=== PATIENT | female | born 1960 | race Caucasian/White ===

== ENCOUNTER 2019-05-05 08:51 | Emergency (ER) | payer BC, SELFPAY ==
[2019-05-05 08:52] VITALS: BP 138/81; PULSE 78; RESP 16; TEMP 36.7; O2SAT 99; BMI 16.2
--- NOTE | 2019-05-05 09:06 | ED.VISSUMM ---
- ER Visit Summary Date of Service: 05/05/19 Chief Complaint: Back pain History of Present Illness: The patient is a 58 F who presents with back pain. She has had chronic back pain for many years. The past couple of months it has been getting worse. She denies any injury. On the left side of her mid and lower back. Movement makes it worse. Nothing makes it better. Denies any numbness or tingling in her legs. No bowel or bladder incontinence. No dysuria. She tried aspirin at home without any relief. She is never had any previous surgeries on her back. She does have a history of scoliosis. Physical Examination: Vital signs are reviewed. Heart is regular rate and rhythm. Lungs are clear to auscultation. Abdomen soft and nontender. Back reveals tenderness in the left paraspinal area of the thoracic and lumbar region. Extremities have no edema. Her strength, sensation and reflexes are equal and normal throughout. Test Results: None performed Emergency Department Course and Treatment: The patient states that she had x-rays done at an urgent care 3 days ago. I reviewed the interpretation of these x-rays and they were unremarkable except for her known scoliosis. I do not feel any new imaging is needed. This is a chronic issue. I will give her Toradol and Norflex here. She will go home with naproxen and Flexeril. She will need to establish with a PCP who may need to send her on for further spine consultation. Treatment Plan: [] Disposition: Discharge Impression: Acute on chronic back pain This note was generated with [employer] dictation software. It may contain incorrect words, spelling, and punctuation that were not noted in review of the chart prior to signing ED Disposition - Plan for ED Patient: Referrals: iMguel Cummins MD [Primary Care Provider] -
--- NOTE | 2019-05-05 09:09 | ED.DEP ---
ED Disposition - Plan for ED Patient: Disposition: Home or Assisted Living Instructions: BACK PAIN (Acute or Chronic) Prescriptions: cycloBENZAPRine HCl [Flexeril] 10 mg PO TID PRN #20 tab PRN Reason: Muscle Spasm Prescription Printed Naproxen [Naprosyn] 500 mg PO BID PRN #20 tab Prescription Printed Referrals: Miguel Cummins MD [Primary Care Provider] -
[2019-05-05] MEDS: Ketorolac 30 MG/ML Syringe IM (09:14)
[2019-05-05] MEDS: Orphenadrine 60 MG/2 ML Ampul IM (09:14)
== END 2019-05-05 09:31 | disposition home or self-care (01) ==
LOC: ED 09:17
PROVIDERS: Emergency Provider Emergency Medicine; Family Provider Family Medicine; PCP Family Medicine
DX: M54.9 Dorsalgia, unspecified (principal); G89.29 Other chronic pain; M41.9 Scoliosis, unspecified; Z72.0 Tobacco use
CPT/HCPCS: 96372; 99282

== ENCOUNTER 2019-12-03 06:49 | Outpatient (RCR) | payer BC, SELFPAY ==
--- NOTE | 2019-12-09 07:19 | HP.OTFCE_ITS ---
Floor (Occasional 1-33% of Day): 20# Floor (Frequent 34-66% of Day): 10# Floor (Constant 67-100% of Day): NA Floor PDL: Light Knee (Occasional 1-33% of Day): 20# Knee (Frequent 34-66% of Day): 10# Knee (Constant 67-100% of Day): NA Knee PDL: Light Waist (Occasional 1-33% of Day): 15# Waist (Frequent 34-66% of Day): 8# Waist (Constant 67-100% of Day): NA Waist PDL: Sedentary Shoulder (Occasional 1-33% of Day): 15# Shoulder (Frequent 34-66% of Day): 8# Shoulder (Constant 67-100% of Day): NA Shoulder PDL: Sedentary Overhead (Occasional 1-33% of Day): 5# Overhead (Frequent 34-66% of Day): NA Overhead (Constant 67-100% of Day): NA Overhead PDL: No Ability Bending: Occasional Ability (1-33% of day) Comments: low occasional ability Squatting: Occasional Ability (1-33% of day) Comments: low occasional ability Kneeling: Occasional Ability (1-33% of day) Comments: low occasional ability Reaching out: Occasional Ability (1-33% of day) Comments: performed while sitting Reaching up: Occasional Ability (1-33% of day) Comments: performed while sitting Sitting: Frequent Ability (34-66% of day) Walking: Occasional Ability (1-33% of day) Standing: Occasional Ability (1-33% of day) Duration Sedentary Sedentary Light Light Light Medium Medium Medium Heavy Very Heavy Heavy Occasional (0-33% of day) Frequent (34-66% of day) Constant (67-100% of day) 10 # Negligible Negligible 15 # 8 # Negligible 20 # 10# Negli. 35 # 18 # 7 # 50 # 25 # 10 # 75 # 100 # >100 # 38 # 50 # >50 # 15 # 20 # >20 # Height: 1.57 m Weight:: 40.823 kg Hand Dominance: Right Medical History Including Restrictions: Pt states she was dx with scoliosis when she was in 7th grade. pt states other than this dx she is in good health. pt reports she has not been put on a lifting restriction. Pt states she has not been working for 6 weeks due to back and left side pain. pt has been see by a chiropractor for a few months to try to get relief. Dr. Goodwin took her off work for 6 weeks and she returned yesterday. Pt states the 6 weeks off did not make a difference in her pain. Pt has been to see orthopedic Dr. Luke and was referred for FCE. Diagnoses: Dx of idiopathic scoliosis, thoracolumbar region 76* curve Symptoms: left Side feels like it is being crushed. Painful left side Pain: Pt states she is currently 8/10. pt does not take pain medication. pt has back brace she wears mostly at work. states this is lumbar support not custom back brace. reasting heart rate 66 Work History: Pt states she has been employed at [employer] for 14.5 years. Pt work hours varies at 39 hours a week. 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 Pt states she has a lift re'q of 50# but states her male co-workers will assist her with lifting. Other job req include standing, walking. Behavioral: Pt was cooperative throughout assessment. ADLS: Pt lives alone in a 2nd story apt. with 14 entry steps with one rail. Pt states she has a claw foot bathtub, pt states she steps in and has no grab bars. pt states she is ind. with bathing and dressing. Pt states she sleeps on a couch because she cannot get comfortable in her bed. pt is ind. with cleaning and cooking. pt ind. with driving. pt ind. with shopping. pt has cats and a puppy that she cares for with no difficulty. Physical Examination: pt posture demo thoracic/lumbar curve. pt demo with scoliosis curve to the left of thoracic/lumbar spine ROM: pt demo with scoliosis curve. UB rom wnl. LB rom WNL. pt limited with truck flex/ext Strength: pt demo UB MMT 4-/5. LB MMT 4+/5 Right Corporate Development Manager Strength Average: 51.66 Right Corporate Development Manager Strength Percentile: 12% Left Corporate Development Manager Strength Average: 50.00 Left Corporate Development Manager Strength Percentile: 22% Right Lateral Pinch Average: 12.66 Right Lateral Pinch Percentile: 50% Left Lateral Pinch Average: 10.33 Left Lateral Pinch Percentile: 25% Right Tripod Pinch Average: 18.66 Right Tripod Pinch Percentile: 90% Left Tripod Pinch Average: 12.66 Left Tripod Pinch Percentile: 75% Sensation: pt denies Fine Motor: 9-hole peg test. right 18.83 sec. = 75%. left 22.37 sec. =50% Balance: no noted loss of balance Bending: pt demo the ability to bend forward three times and 5 times pts pain increased from 6/10 to 7 /10. pt was unable to bend forward 10 times or 10 times rapidly. pt can bend forward on a low occasional ability. Squatting: pt demo the ability to squat three times and 8 times with external support. pt reported pain pt can squat on a low occasional ability. 7/10 heart rate 74 Kneeling: pt demo the ability to kneel three and ten times with external support pt reported pain increased 8/10 pts heart rate increased to 78 beates per min. /pt was leaning heavely on table top with task. pt unable to kneel ten times fast. pt can kneel on a low occasional ability Reaching out/up: pt demo the ability to reach up/out three times, ten times and ten times rapidly. pt completed this sitting as her back pain contnued to staty at 7/10. pt can reach up/out on occasional basis. Walking: pt ambulated 8 min with a antalgic gait pattern. heart rate increased to 87 beats per min. pain 8/10 Standing: pt demo the ability to stand for 3min and 39 seconds. pt states her pain level 7/10 with standing. pts heart rate increased to 94beats per min. pt can stand on occasional ability Sitting: pt demo the ability to sit for 40 min witih no apparent or expressed discomofort pt can sit on a frequent basis Climbing Stairs: pt demo the ability to ascend and desend ten steps with a reciprical step pattern with use of rail. pt demo good safe ability to mtg staris. Floor Lift: pt demo max lift abilty at 20# and comfort lift at 10# from floor level. Pt demo good lift mechanics Knee Lift: pt demo max lift abilty at 20# and comfort lift at 10# from knee level. Pt demo good lift mechanics Waist Lift: pt demo max lift abilty at 15# and comfort lift at 8# from waist level. Pt has increased pain with this height of lift in thracic region Shoulder Lift: pt demo max lift abilty at 15# and comfort lift at 8# from shoulder level. pt has increased pain with this height of lift in throacic reagion Overhead Lift: pt demo max lift ability at 5# Carrying: pt demo the ability to carry 10# for 30 feet with good ability. Comments: Heart rate 94 beats per min. following lifting tasks.
--- NOTE | 2020-02-25 14:18 | HP.OT.NRP ---
DARRELL Nati LOPEZ was seen in my office for initial evaluation on . The following Plan of Care was established for this patient: This patient was last seen in our office 12/03/19. Pertinent comments regarding their Occupational therapy will appear below: Pt seen for FCE only. At this point I will be discontinuing this patient from occupational therapy. I would be happy to see this patient again in the future if found appropriate by the physician. Thank you! Samantha Alvarez, OTR/L, CHT
== END 2019-12-03 19:00 | disposition home or self-care (01) ==
LOC: OT 06:49
PROVIDERS: PCP Family Medicine
DX: M41.25 Other idiopathic scoliosis, thoracolumbar region (principal)
CPT/HCPCS: 97750

== ENCOUNTER → 2022-12-18 | Outpatient (CLI) | payer BC, SELFPAY ==
--- NOTE | 2022-12-18 11:10 | RAD_ITS ---
STUDY: X-RAY EXAMINATION: SCOLIOSIS SERIES REASON FOR EXAM: Female, 62 years old. SCOLIOSIS TECHNIQUE: 1 view(s) of the thoracolumbar spine were obtained in the upright standing position. COMPARISON: Comparison is made with prior study dated March 18, 2012. FINDINGS: 48 degree dextroconvex scoliosis at the thoracal lumbar junction. This has progressed as compared to prior study. RAD/Scoliosis 1 view IMPRESSION: 48 degree dextroconvex scoliosis at the thoracolumbar junction. This has progressed as compared to prior study. Electronically Signed: Nahid Higuera MD at 11:15 EDT ,
== END | disposition home or self-care (01) ==
PROVIDERS: PCP Family Medicine; Referring Provider Family Medicine; Visit Provider Family Medicine
DX: M41.9 Scoliosis, unspecified (principal)
CPT/HCPCS: 72081

== ENCOUNTER → 2023-03-07 | Outpatient (CLI) | payer BC, SELFPAY ==
--- NOTE | 2023-03-07 07:35 | MRI_ITS ---
STUDY: MRI LUMBAR SPINE WITHOUT CONTRAST REASON FOR EXAM: Female, 62 years old. pain TECHNIQUE: Standardized fat and water weighted pulse sequences were obtained in the sagittal and axial planes. COMPARISON: X-ray the lumbar spine dated February 08, 2023 FINDINGS: Normal lumbar lordosis. Severe dextroscoliosis. Normal conus medullaris that terminates at the L1 level. No acute fracture or compression deformity or marrow edema is present. T12-L1: Normal endplates. Mild asymmetric disc space narrowing without significant bulge or herniation of the disc. Normal bilateral facet joints. Normal central canal and bilateral lateral recesses. Normal bilateral intervertebral neural foramina. L1-2: Mild to moderate Modic endplate degenerative signal. Mild to moderate asymmetric disc space narrowing with mild annular bulging. Mild left foraminal stenosis. Mild facet joint hypertrophy. Normal right neural foramen. Normal central canal and bilateral lateral recesses. L2-3: Mild to moderate asymmetric disc space narrowing with mild annular bulging. Mild endplate spurring. Mild facet joint hypertrophy. Normal central canal and bilateral lateral recesses. Normal bilateral intervertebral neural foramina. L3-4: Diffuse disc desiccation with mild to moderate asymmetric disc space narrowing most pronounced on the right side with minor annular bulging. Mild facet joint and ligament of flavum hypertrophy. Mild right foraminal stenosis. Normal left neural foramen. Normal bilateral facet joints. Normal central canal and bilateral lateral recesses. L4-5: Mild asymmetric disc space narrowing with right side disc space narrowing and minor annular bulging and endplate degenerative signal. Mild facet joint hypertrophy mild right foraminal stenosis. Normal left neural foramen.. Normal central canal and bilateral lateral recesses. L5-S1: Normal endplates. Normal disc height, hydration and morphology. Mild right facet joint hypertrophy Normal central canal and bilateral lateral recesses. Normal bilateral intervertebral neural foramina. Normal visualized sacral ala. Normal visualized paraspinous soft tissue structures. MRI/Spine Lumbar (Routine) IMPRESSION: Multilevel degenerative changes, as described above. Electronically Signed: Román Carbone MD at 15:03 EDT ,
== END | disposition home or self-care (01) ==
PROVIDERS: PCP Family Medicine; Referring Provider Orthopaedic Surgery; Visit Provider Orthopaedic Surgery
DX: M41.9 Scoliosis, unspecified (principal)
CPT/HCPCS: 72148

== ENCOUNTER → 2023-03-22 | Outpatient (CLI) | payer BC, SELFPAY ==
--- NOTE | 2023-03-22 10:51 | BD_ITS ---
STUDY: DUAL ENERGY X-RAY ABSORPTIOMETRY / DXA REASON FOR EXAM: Female, 62 years old. Osteoporosis TECHNIQUE: Bone Mineral Density (BMD) measurements of left forearm and bilateral hips were obtained. COMPARISON: None. FINDINGS: Left Femur Total: g/cm2 (0.562) / T-score (-3.1) / Z-score (-2.1) Left Femoral Neck: g/cm2 (0.473) / T-score (-3.4) / Z-score (-2.1) Right Femur Total: g/cm2 (0.486) / T-score (-3.7) / Z-score (-2.7) Right Femoral Neck: g/cm2 (0.453) / T-score (-3.6) / Z-score (-2.2) Right Forearm: g/cm2 (0.465) / T-score (-2.1) / Z-score (-0.8) BD/Dexa Bone Density Study IMPRESSION: The patient is considered osteoporotic as outlined below according to World Aro[employer] Organization (WHO) criteria with a high fracture risk. Reference Information: The T-score is the number of standard deviations above or below the standard which is normal for young adults at their peak bone mineral density. The World Health Organization (WHO) interprets the T-scores as follows: Above -1 Normal bone density Between -1 and -2.5 Osteopenia Equal to / or below -2.5 Osteoporosis As a practical clinical guideline, osteopenia may be graded as follows: Mild -1 through -1.5 Moderate -1.6 through -2.0 Severe -2.1 through -2.4 The Z-score is the number of standard deviations above or below age-matched controls. A Z-score of less than -1.5 would be considered abnormal. References: 1. NIH Osteoporosis and Related Bone Diseases www osteo.org 2. International Society for Clinical Densitometry www iscd.org 3. National Osteoporosis Foundation www nof.org Electronically Signed: Nahid Higuera MD at 11:29 EDT ,
== END | disposition home or self-care (01) ==
PROVIDERS: PCP Family Medicine; Referring Provider Orthopaedic Surgery; Visit Provider Orthopaedic Surgery
DX: M81.0 Age-related osteoporosis without current pathological fracture (principal)
CPT/HCPCS: 77080

== ENCOUNTER → 2023-09-20 | Outpatient (CLI) | payer BC, MEDICAID, SELFPAY ==
[2023-09-20 10:33] LABS: ALB/GLOB Ratio 1.1 RATIO (0.9-2.4); AST(SGOT) 169 U/L (15-37); Alanine Aminotransfer ALT/SGPT 109 U/L (13-56); Albumin, Serum 3.7 g/dL (3.2-5.0); Alkaline Phosphatase 84 U/L (45-117); Anion Gap 10 (5-15); BUN 7 mg/dL (7-18); BUN/Creat Ratio 11.8 RATIO (10-20); Calcium,Total 9.4 mg/dL (8.5-10.1); Chloride 103 mmol/L (98-107); Cholesterol 220 mg/dL (200); Creatinine, Serum 0.59 mg/dL (0.55-1.02); EST Glomerular Filtration Rate 110 mL/min (>60); Est Glom Filt Rate - Afr Amer 133 mL/min (>60); Globulin 3.3 g/dL (2.2-4.2); Glucose 72 mg/dL (74-106); High Density Lipoprotein 142 mg/dL; Potassium 4.5 mmol/L (3.5-5.1); Sodium Level 137 mmol/L (136-145); Triglycerides 72 mg/dL; Very Low Density Lipoprotein 14 mg/dL (5-40)
== END | disposition home or self-care (01) ==
LOC: MFPLAB 08:42
PROVIDERS: PCP Family Medicine; Visit Provider Family Medicine
DX: Z00.00 Encounter for general adult medical examination without abnormal findings (principal)
CPT/HCPCS: 36415; 80053; 80061

== ENCOUNTER → 2024-03-26 | Outpatient (CLI) | payer MEDICAID, SELFPAY ==
[2024-03-26 15:57] LABS: Anion Gap 10 (5-15); BUN 6 mg/dL (7-18); Calcium,Total 9.6 mg/dL (8.5-10.1); Chloride 101 mmol/L (98-107); Creatinine, Serum 0.67 mg/dL (0.55-1.02); EST Glomerular Filtration Rate 95 mL/min (>60); Est Glom Filt Rate - Afr Amer 115 mL/min (>60); Glucose 106 mg/dL (74-106); Potassium 4.1 mmol/L (3.5-5.1); Sodium Level 135 mmol/L (136-145)
== END | disposition home or self-care (01) ==
PROVIDERS: PCP Family Medicine; Referring Provider Family Medicine; Visit Provider Family Medicine
DX: R00.0 Tachycardia, unspecified (principal)
CPT/HCPCS: 36415; 80048; 84443

== ENCOUNTER → 2024-06-11 | Outpatient (CLI) | payer MEDICAID, SELFPAY ==
--- NOTE | 2024-06-11 13:23 | ST.MBS ---
Modified Barium Swallow Patient Information Study Date: 06/11/24 Study Time: 13:00 Direct Billable Minutes: 60 Total Minutes procedure & reportin Diagnosis: Dysphagia, unspecified R13.10 Referring Physician: Miguel Cummins Reason for Referral: Objectively assess swallow function, assess risk for aspiration, and determine recommendations for least restrictive diet textures and compensatory strategies to improve safety of swallow. Current Diet Ordered: Regular textures/ Thin liquids (no modifications) Respiratory Status: Oxygenating on Room Air Penetration-Aspiration Scale Penetration-Aspiration Scale: OBJECTIVE ASSESSMENT OF SWALLOW FUNCTION (QUANTITATIVE ? PER TRIAL): PENETRATION / ASPIRATION SCALE (OHARA): 1 = does not enter airway 2 = enters airway/above vocal folds/ejected 3 = enters airway/above vocal folds/not ejected 4 = enters airway/contacts vocal folds/ejected 5 = enters airway/contacts vocal folds/not ejected 6 = enters airway/below vocal folds/ejected 7 = enters airway/below vocal folds/not ejected despite effort 8 = enters airway/below vocal folds/no effort VIDEOFLOROSCOPIC SCALE SCORE (OHARA): Grade I = aspiration of material that has penetrated into the laryngeal vestibule, intact cough reflex Grade II = aspiration < 10 % of the bolus, intact cough reflex Grade III = aspiration of < 10 % of the bolus, reduced cough reflex or aspiration of > 10 % of the bolus, intact cough reflex Grade IV = aspiration of > 10 % of the bolus, reduced cough reflex Penetration-Aspiration Scale Score Thin Liquid via teaspoon: Result: 1= does not enter airway Thin Liquid via teaspoon Trial 2: Result: 1= does not enter airway Thin Liquid via small single sip: cup: Result: 1= does not enter airway Thin Liquid via sequential sips: cup: Result: 1= does not enter airway Nucla Thick Liquid via small single sip: cup: Result: 1= does not enter airway Honey Thick Liquid via small single sip: cup: Result: 1= does not enter airway Pudding via teaspoon: Result: 1= does not enter airway Cookie: Result: 1= does not enter airway Oral Phase Labial Seal: No Labial Escape Tongue Control During Bolus Hold: Cohesive bolus between tongue to palatal seal Bolus Preparation/Mastication: Slow prolonged chewing/mashing with complete recollection Bolus Transport/Lingual Motion: Brisk tongue motion Oral Residue: Trace residue lining oral structures Pharyngeal Phase Initiation of Pharyngeal Swallow: Bolus head at posterior angle of ramus at first hyoid excursion Soft Palate Elevation: No bolus between soft palate and pharyngeal wall Laryngeal Elevation: Comp. Superior move thyroid cart w/comp. apprx arytenoid cart-epig pet Anterior Hyoid Excursion: Complete anterior movement Epiglottic Movement: Complete inversion Laryngeal Vestibule Closure at Height of Swallow: Complete; no air/contrast in laryngeal vestibule Pharyngeal Stripping Wave: Present - diminished Pharyngoesophageal Segment Opening: Parital distension and partial duration; parital obstruction of flow Tongue Base Retraction: No contrast between tongue base and posterior pharyngeal wall Pharyngeal Residue: Trace residue within or on pharyngeal structures Esophageal Phase Esophageal Clearance: Complete clearance Diagnosis/Impression Diagnosis: Swallow Function WNL Impression: Overall, the patient presents with adequate swallow function. The oral phase is within normal limits with efficient bolus formation and transport. The pharyngeal phase was also intact, with clear and timely clearance of the bolus. No aspiration or penetration was observed. These findings suggest that the patient's swallow function is overall normal, with no current indication of dysphagia. Recommendations Diet: Regular Textures and Thin Liquids Recommend Repeat Modified Barium Swallow: No Need for Skilled Speech Therapy Services: No Education Completed: 1. Described result of evaluation. Status Active ST Patient: Active Contact Information [facility] Speech Therapy:: Kay Weiss M.A. [facility]-RENT CONTROL OFFICE MANAGER Speech-Language Pathologist [facility] [address] [place] [address] [email or web address] [phone]
== END | disposition home or self-care (01) ==
LOC: RAD 12:45
PROVIDERS: PCP Family Medicine; Referring Provider Family Medicine; Visit Provider Family Medicine
DX: R13.10 Dysphagia, unspecified (principal)
CPT/HCPCS: 74230; 92611

== ENCOUNTER → 2024-12-24 | Outpatient (CLI) | payer BC, SELFPAY ==
[2024-12-24 17:42] LABS: Hematocrit 26.7 % (37-47); Hemoglobin 8.4 g/dL (12.0-15.0); Mean Corp Hgb Conc 31.5 g/dL (32-36); Mean Corpuscular Volume 103.9 fL (81-99); Mean Platelet Vol. 9.2 fl (6.2-12.0); Platelet Count 306 K/mm3 (150-450); RBC Distribution Width CV 14.4 % (11.6-14.6); RBC Distribution Width SD 54.1 fl (35.1-43.9); Red Blood Count 2.57 M/mm3 (4.2-5.4); White Blood Count 4.5 K/mm3 (4.4-11.0)
[2024-12-24 18:56] LABS: AST(SGOT) 142 U/L (<=31); Alanine Aminotransfer ALT/SGPT 57 U/L (<=34); Albumin, Serum 4.5 g/dL (3.4-4.8); Alkaline Phosphatase 138 U/L (35-104); Anion Gap 17 (5-15); BUN 6 mg/dL (4-19); BUN/Creat Ratio 9.0 RATIO (10-20); Calcium,Total 10.3 mg/dL (7.6-11.0); Carbon Dioxide 21.3 mmol/L (21.0-32.0); Chloride 95 mmol/L (98-108); Free T3 2.7 pg/mL (2.18-3.98); Globulin 2.7 g/dL (2.2-4.2); Glucose 184 mg/dL (70-99); Potassium 4.6 mmol/L (3.3-5.1)
== END | disposition home or self-care (01) ==
PROVIDERS: PCP Family Medicine; Referring Provider Nurse Practitioner Family; Visit Provider Nurse Practitioner Family
DX: F10.10 Alcohol abuse, uncomplicated (principal); E03.9 Hypothyroidism, unspecified
CPT/HCPCS: 36415; 80053; 84439; 84443; 84481; 85027